=== PATIENT | female | born 1995 | race Caucasian/White ===

== ENCOUNTER 2017-01-07 22:42 | Emergency (ER) | payer MEDICAID ==
[~2017-01-07] VITALS: Ht 172.7 cm; Wt 81.6 kg
[2017-01-07 23:24] LABS: Basophils # (auto) 0 uL; Basophils % (auto) 0.2 % (0.0-2.0); CONDITION Y; Eosinophils # (auto) 0.1 uL; Eosinophils % (auto) 2.1 % (0.0-7.0); Hematocrit 35.5 % (36.0-46.0); Hemoglobin 12.4 g/dL (12.2-16.2); Lymphocytes # (auto) 2.9 uL; Lymphocytes % (auto) 44.7 % (10.0-50.0); Mean Corpuscular Hemoglobin 30.3 pg (28.0-32.0); Mean Corpuscular Hgb Conc. 34.8 g/dL (32.0-36.0); Mean Corpuscular Volume 87.1 fL (80.0-100.0); Mean Platelet Volume 8.4 fL (7.4-10.4); Monocytes # (auto) 0.6 uL; Monocytes % (auto) 8.6 % (0.0-12.0); Neutrophils # (auto) 2.9 uL; Neutrophils % (auto) 44.4 % (37.0-80.0); Platelet Count (auto) 262 10^3/uL (140-450); Red Cell Distribution Width 12.5 % (11.6-16.0); White Blood Cell 6.6 10^3/uL (4.4-10.8)
[2017-01-07 23:41] LABS: Albumin 3.1 g/dL (3.4-5.0); BUN/Creatinine Ratio 22.2; Calcium 7.6 mg/dL (8.5-10.1); Potassium 3.8 mmol/L (3.5-5.1)
[2017-01-07 23:51] LABS: Bilirubin, Total 0.3 mg/dL (0.2-1.0); Total Protein 5.7 g/dL (6.4-8.2)
[2017-01-08] MEDS ORDERED: SODIUM CHLORIDE 0.9% 1,000 ML IV ONE (01:45)
[2017-01-08] MEDS ORDERED: NALBUPHINE HCL 10 MG/1ml INJECTION IV ONE (01:45)
[2017-01-08] MEDS ORDERED: ONDANSETRON HCL 4 MG/2 ML VIAL IV ONE (01:45)
[2017-01-08 02:11] LABS: Urine Bilirubin Negative (Negative); Urine Blood 3+ /uL (Negative); Urine Color Yellow (Yellow); Urine Glucose Normal (Normal); Urine Ketone Negative (Negative); Urine Nitrite Negative (Negative); Urine RBC 136 /hpf (0 - 4); Urine Squamous Epithelial Cell FEW /hpf (<5); Urine Urobilinogen Normal (Negative); Urine pH 6.5 (5.0-8.0)
[2017-01-08 06:00] VITALS: BP 110/68
== END 2017-01-08 06:10 | disposition home or self-care (01) ==
LOC: ER 22:55
DX: R56.9 Unspecified convulsions (principal); E86.0 Dehydration; E83.51 Hypocalcemia; T67.5XXA Heat exhaustion, unspecified, initial encounter; F19.10 Other psychoactive substance abuse, uncomplicated; Z90.49 Acquired absence of other specified parts of digestive tract
CPT/HCPCS: 36415; 70450; 80053; 80307; 81001; 83690; 85025; 96361; 96374; 96375; 99285; J2300; J2405; J7030

== ENCOUNTER 2018-09-28 21:18 | Emergency (ER) | payer MEDICAID ==
[~2018-09-28] VITALS: Ht 172.7 cm; Wt 81.6 kg
[2018-09-28 22:28] VITALS: BP 160/76
== END 2018-09-29 | disposition home or self-care (01) ==
LOC: ER 21:18
DX: J02.9 Acute pharyngitis, unspecified (principal); Z90.49 Acquired absence of other specified parts of digestive tract
CPT/HCPCS: 71045